=== PATIENT | male | born 1945 | race Two or more races ===

== ENCOUNTER 2018-10-02 14:42 | Outpatient (CLI) | payer OTHER ==
[~2018-10-02 14:42] MED LIST: FOSAMAX70 MG; LISINOPRIL10 MG; METFORMIN HCL500 MG; SIMVASTATIN20 MG; VERAPAMIL ER240 MG
== END 2018-10-02 15:08 | disposition home or self-care (01) ==
LOC: RAD 14:42
DX: J44.0 Chronic obstructive pulmonary disease with (acute) lower respiratory infection (principal)

== ENCOUNTER 2019-05-27 10:26 | Outpatient (CLI) | payer OTHER | END 2019-05-27 10:28 | disposition home or self-care (01) | LOC: TOM 10:26 | DX: J44.9 Chronic obstructive pulmonary disease, unspecified (principal); Z87.891 Personal history of nicotine dependence ==

== ENCOUNTER → 2019-09-30 | Outpatient (CLI) | payer OTHER | END | disposition home or self-care (01) | LOC: TOM 08:36 | DX: E11.51 Type 2 diabetes mellitus with diabetic peripheral angiopathy without gangrene (principal); I71.2 Thoracic aortic aneurysm, without rupture; I10 Essential (primary) hypertension; E78.49 Other hyperlipidemia | CPT/HCPCS: 71275; 74175; Q9965 ==

== ENCOUNTER 2019-10-17 12:36 | Outpatient (CLI) | payer OTHER | END 2019-10-17 15:23 | disposition home or self-care (01) | LOC: SONOGRAMA 12:36 | DX: E03.8 Other specified hypothyroidism (principal); E04.2 Nontoxic multinodular goiter ==

== ENCOUNTER 2019-11-19 08:04 | Outpatient (CLI) | payer OTHER | END 2019-11-19 08:11 | disposition home or self-care (01) | LOC: RAD 08:04 | DX: M99.01 Segmental and somatic dysfunction of cervical region (principal); M54.2 Cervicalgia; M54.6 Pain in thoracic spine; M99.03 Segmental and somatic dysfunction of lumbar region; M54.5 Low back pain ==

== ENCOUNTER 2020-03-26 06:44 | Outpatient (CLI) | payer OTHER | END 2020-03-26 06:51 | disposition home or self-care (01) | LOC: LAB 06:44 | PROVIDERS: ATTEND Orthopaedic Surgery | DX: M85.88 Other specified disorders of bone density and structure, other site (principal); E55.9 Vitamin D deficiency, unspecified; E21.2 Other hyperparathyroidism; E88.89 Other specified metabolic disorders; M81.8 Other osteoporosis without current pathological fracture; E56.1 Deficiency of vitamin K ==

== ENCOUNTER 2020-04-06 12:41 | Outpatient (CLI) | payer OTHER | END 2020-04-06 12:46 | disposition home or self-care (01) | LOC: NUCLEAR 12:41 | PROVIDERS: ATTEND Orthopaedic Surgery | DX: M81.0 Age-related osteoporosis without current pathological fracture (principal) ==

== ENCOUNTER 2021-01-13 07:42 | Outpatient (CLI) | payer OTHER | END 2021-01-13 07:50 | disposition home or self-care (01) | LOC: SONOGRAMA 07:42 → MAMO-SONO 08:15 | PROVIDERS: ATTEND Specialist/Technologist, Other Nephrology | DX: R10.84 Generalized abdominal pain (principal); N18.30 Chronic kidney disease, stage 3 unspecified; R31.29 Other microscopic hematuria ==

== ENCOUNTER 2021-05-12 08:00 | Outpatient (CLI) | payer OTHER | END 2021-05-12 08:30 | disposition home or self-care (01) | LOC: PPH VACUNA 08:00 | DX: Z23 Encounter for immunization (principal) ==

== ENCOUNTER 2021-06-09 12:30 | Outpatient (CLI) | payer OTHER | END 2021-06-09 12:41 | disposition home or self-care (01) | LOC: TOM 12:30 | PROVIDERS: ATTEND General Practice | DX: I71.2 Thoracic aortic aneurysm, without rupture (principal); R07.89 Other chest pain ==

== ENCOUNTER 2021-12-05 11:04 | Outpatient (CLI) | payer OTHER | END 2021-12-05 11:08 | disposition home or self-care (01) | LOC: RAD 11:04 | PROVIDERS: ATTEND General Practice | DX: M15.9 Polyosteoarthritis, unspecified (principal) ==

== ENCOUNTER 2021-12-15 08:00 | Outpatient (CLI) | payer OTHER | END 2021-12-15 08:30 | disposition home or self-care (01) | LOC: PPH VACUNA 08:00 | PROVIDERS: ATTEND Emergency Medicine Pediatric Emergency Medicine | DX: Z23 Encounter for immunization (principal) ==

== ENCOUNTER 2022-07-07 12:11 | Outpatient (CLI) | payer OTHER | END 2022-07-07 12:24 | disposition home or self-care (01) | LOC: RAD 12:11 | DX: R97.20 Elevated prostate specific antigen [PSA] (principal) ==

== ENCOUNTER 2024-08-22 12:21 | Outpatient (CLI) | payer OTHER | END 2024-08-22 12:26 | disposition home or self-care (01) | LOC: TOM 12:21 | DX: J43.9 Emphysema, unspecified (principal); R94.2 Abnormal results of pulmonary function studies; Z87.891 Personal history of nicotine dependence; Z12.2 Encounter for screening for malignant neoplasm of respiratory organs ==

== ENCOUNTER → 2024-09-09 | Emergency (ER) | payer OTHER ==
[~2024-09-09] VITALS: Ht 175.3 cm; Wt 74.4 kg
[~2024-09-09] MED LIST changes: +AMLODIPINE-OLM1 EAC3 PO; +COMBIGAN EYE DRO5 ML OP; +COZAAR100 MG PO; +LIPITOR20 MG PO; +METFORMIN HCL850 MG; +TOPROL XL25 M1 PO; +XANAX1 MG PO; +XELPROS2.5 ML OP
== END | disposition left against medical advice (07) ==
LOC: ER 00:53
DX: Z53.21 Procedure and treatment not carried out due to patient leaving prior to being seen by health care provider (principal)

== ENCOUNTER 2025-05-11 08:12 | Outpatient (CLI) | payer OTHER | END 2025-05-11 08:16 | disposition home or self-care (01) | LOC: RAD 08:12 | PROVIDERS: ATTEND General Practice | DX: S29.9XXA Unspecified injury of thorax, initial encounter (principal) ==